=== PATIENT | female | born 1950 | race Two or more races ===

== ENCOUNTER 2021-05-01 19:32 | Emergency (ER) | payer OTHER, MEDICAID ==
[~2021-05-01] VITALS: Ht 160 cm; Wt 63.5 kg
[2021-05-01 22:11] VITALS: BP 152/98
== END 2021-05-01 22:12 | disposition home or self-care (01) ==
LOC: EDBD 19:32 → ER 19:36
DX: S20.219A Contusion of unspecified front wall of thorax, initial encounter (principal); Z97.10 Presence of artificial limb (complete) (partial), unspecified; Z88.0 Allergy status to penicillin; Z88.2 Allergy status to sulfonamides; V43.52XA Car driver injured in collision with other type car in traffic accident, initial encounter; Y93.89 Activity, other specified; Y92.410 Unspecified street and highway as the place of occurrence of the external cause; Y99.8 Other external cause status
CPT/HCPCS: 71045; 93005